=== PATIENT | female | born 1965 | race Caucasian/White ===

== ENCOUNTER 2023-07-24 04:03 | Day surgery (SDC) | payer OTHER, SELFPAY ==
[2023-07-05 14:03] VITALS: BMI 20.2
[2023-07-24 08:48] VITALS: BP 118/80; PULSE 112; RESP 18; TEMP 37; O2SAT 98
[2023-07-24] MEDS: LACTATED RINGERS 1,000 ML 150 ML IV CONT (09:05)
--- NOTE | 2023-07-24 09:36 | PM.HPGS ---
History of Present Illness History of Present Illness Consent: Risks, benefits, and alternatives have been discussed and questions answered. Patient agrees to proceed with procedure. Chief complaint: neoplasm screening Narrative: Justine Jason is a 58 year old female here for screening colonoscopy Review of Systems Review of Systems: All systems reviewed & are unremarkable except as noted in HPI and below PMFSH Past Medical History Medical History (Updated 07/24/23 @ 09:36 by Dima Zhong MD) Colon cancer screening Surgical History Surgical History H/O lumpectomy Family History Family History Father Patient's father is in good health Sibling Patient's brother is in good health Mother Family history of malignant neoplasm of ovary Other Family history of malignant neoplasm Social History Social History Smoking status: Never smoker Alcohol intake: current Drinks per week: 4 Substance use: never Substance use type: does not use Living arrangements: with family Spiritual care concerns: No Meds Home Medications and Allergies Home Medications Medication Instructions Recorded Confirmed Type cetirizine 10 mg tablet (Zyrtec) 10 mg PO DAILY 11/06/19 07/05/23 History albuterol sulfate 90 mcg/actuation 2 puff inhalation Q4-6H PRN sob 07/05/23 07/05/23 History aerosol inhaler (Ventolin HFA) and wheezing doxycycline hyclate 20 mg tablet 20 mg PO BID 07/05/23 07/05/23 History montelukast 10 mg tablet 10 mg PO QPM #90 tabs 07/19/23 Rx Allergies Allergy/AdvReac Type Severity Reaction Status Date / Time No Known Allergies Allergy Verified 07/24/23 08:43 Vital Signs Vital Signs - 24 hr 07/24/23 08:48 Temperature 98.6 F Pulse Rate 112 H Respiratory Rate 18 Blood Pressure 118/80 Pulse Oximetry 98 Oxygen Delivery Room Air Exam Const: General: comfortable and no acute distress HENMT: Face/Nose/Sinus: Normal nares present Eyes: General: appearance normal, both eyes and all related structures Neck: Neck: no JVD Resp: Auscultation: clear to auscultation bilaterally Cardio: Rate: regular rate Rhythm: regular rhythm GI: Inspection: non-distended GI Palp: Yes Soft to palpation Skin: General skin exam: normal color Neuro: General: gait normal Speech: normal speech Extrem: General: normal to inspection Psych: Mental Status: mental status grossly normal Assessment and Plan Assessment and plan (1) Colon cancer screening: Code(s): Z12.11 - Encounter for screening for malignant neoplasm of colon Status: Acute Assessment and Plan: colonoscopy
--- NOTE | 2023-07-24 09:42 | P.PNAN_ITS ---
Anes - Initial Pre Proc Eval Procedure: Operation Date: 07/24/23 10:00 Proposed Procedures p Screening Colonoscopy - Dima Zhong MD Date/Time: 07/24/23 09:42 Surgeon: Dima Zhong MD Pre Op Diagnosis: neoplasm screening Patient Data Age: 58 Gender: F Height: 1.68 m Weight: 56.8 kg Last Vital Signs Temp 98.6 F 07/24/23 08:48 Pulse 112 H 07/24/23 08:48 Resp 18 07/24/23 08:48 BP 118/80 07/24/23 08:48 Pulse Ox 98 07/24/23 08:48 O2 Del Method Room Air 07/24/23 08:48 Allergies Allergy/AdvReac Type Severity Reaction Status Date / Time No Known Allergies Allergy Verified 07/24/23 08:43 Home Medications Medication Instructions Recorded Confirmed Type cetirizine 10 mg tablet (Zyrtec) 10 mg PO DAILY 11/06/19 07/05/23 History albuterol sulfate 90 mcg/actuation 2 puff inhalation Q4-6H PRN sob 07/05/23 07/05/23 History aerosol inhaler (Ventolin HFA) and wheezing doxycycline hyclate 20 mg tablet 20 mg PO BID 07/05/23 07/05/23 History montelukast 10 mg tablet 10 mg PO QPM #90 tabs 07/19/23 Rx Patient hx anesthesia problems: none Family hx anesthesia problems: none Results Review: All pre-operative results and documents have been reviewed as part of the pre- operative evaluation. [facility] Past Medical History Medical History (Updated 07/24/23 @ 09:36 by Dima Zhong MD) Colon cancer screening Surgical History Surgical History H/O lumpectomy Family History Family History Father Patient's father is in good health Sibling Patient's brother is in good health Mother Family history of malignant neoplasm of ovary Other Family history of malignant neoplasm Social History Social History Smoking status: Never smoker Alcohol intake: current Drinks per week: 4 Substance use: never Substance use type: does not use Living arrangements: with family Spiritual care concerns: No Anes - Eval Final PreProcedure Day of Procedure 07/24/23 09:42 Patient weight: normal Heart: regular rate and rhythm Lungs: clear to auscultation Airway: Mallampati scale class II Neurological: alert and oriented Last oral intake: >/= 8 hours ASA classification: III Emergent: no Anesthetic plan: proceed Anesthesia type and monitoring: general GIVS and standard monitoring Results Review: All pre-operative results and documents have been reviewed as part of the pre- operative evaluation. Informed Consent: The patient's anesthetic plan and its attendant risks and benefits were discussed with the patient/family/POA. Questions were solicited and answers provided to the satisfaction of the patient/family/POA.
[2023-07-24 10:00] VITALS: BP 87/45; PULSE 60; RESP 18; O2SAT 98
[2023-07-24 10:10] VITALS: BP 86/57; PULSE 60; RESP 18; O2SAT 100
[2023-07-24 10:20] VITALS: BP 100/65; PULSE 60; RESP 18; O2SAT 100
== END 2023-07-24 10:36 | disposition home or self-care (01) ==
PROVIDERS: PCP Internal Medicine; Visit Provider Internal Medicine Gastroenterology
PROC: 0DJD8ZZ Inspection of Lower Intestinal Tract, Via Natural or Artificial Opening Endoscopic (ICD-10-PCS; CPT 45378; principal; 2023-07-24 10:00)
DX: Z12.11 Encounter for screening for malignant neoplasm of colon (principal); K64.8 Other hemorrhoids; Z79.51 Long term (current) use of inhaled steroids
CPT/HCPCS: 45378; J2704; J7120